=== PATIENT | female | born 1980 | race Caucasian/White ===

== ENCOUNTER 2017-10-27 18:22 | Emergency (ER) | payer MEDICARE, OTHER ==
[2017-10-27 18:50] VITALS: BP 139/86; PULSE 89; RESP 20; TEMP 98.7
[2017-10-27] MEDS ORDERED: predniSONE 50 MG TAB PO STA (20:52)
[2017-10-27] MEDS ORDERED: HYDROmorphone 4 MG/ML 1 ML SYRINGE IM STA (20:52)
[2017-10-27] MEDS ORDERED: ORPHENADRINE 30 MG/ML 2 ML VIAL IM STA (20:52)
--- NOTE | 2017-10-27 21:10 | ED ---
Back Pain HPI - General Chief Complaint: Back Pain/Injury Stated Complaint: back pain, 3 disc herniation Time Seen by Provider: 10/27/17 20:52 Source: patient, RN notes reviewed Limitations: no limitations - History of Present Illness Initial Comments: This is a 36-year-old female who presents to the emergency department with chief complaint of acute on chronic back pain. Patient states that she is seen by doctors at [facility] for chronic back pain. She states she she has a history of 3 herniated disks with spinal fluid leaking into her spinal column. She states that she is supposed to have back surgery but is not keen on doing so. Patient states that she must return to work on Monday and that her current medication is "not cutting it for me." Patient denies any new injuries or trauma. She denies saddle paresthesias or loss of bladder or bowel function. She denies any numbness or tingling or radiation of pain down the legs. She denies fevers or chills, abdominal pain, nausea or vomiting. - Related Data Previous Rx's Medication Instructions Recorded predniSONE 20 mg PO BID #8 tab 10/27/17 Allergies Allergy/AdvReac Type Severity Reaction Status Date / Time No Known Allergies Allergy Verified 10/27/17 18:50 Review of Systems ROS Statement: Those systems with pertinent positive or pertinent negative responses have been documented in the HPI. ROS Other: All systems not noted in ROS Statement are negative. Past Medical History Additional Past Medical History / Comment(s): Back injury History of Any Multi-Drug Resistant Organisms: None Reported Past Surgical History: No Surgical Hx Reported Past Psychological History: Anxiety Smoking Status: Former smoker Past Alcohol Use History: None Reported Past Drug Use History: Marijuana General Exam - General Exam Comments Initial Comments: General: Awake and alert, well-developed; in no apparent distress. Sitting on chair while leaning forward. HEENT: Head atraumatic, normocephalic. Pupils are equal, round and reactive to light. Extraocular movements intact. Oropharynx moist without erythema or exudate. Neck: Supple. Normal ROM. No tenderness. Cardiovascular: Regular rate and rhythm. No murmurs, rubs or gallops. Chest symmetrical. Respiratory: Lungs clear to auscultation bilaterally. No wheezes, rales or rhonchi. Normal respiratory effort with no use of accessory muscles. Musculoskeletal: Normal ROM and no tenderness on palpation of the vertebra, SI joints or bilateral paraspinal muscles. Sensation is intact. Pedal pulses are 2+ equal and palpable bilaterally. Ambulating normally. Skin: [place], warm and dry without rashes or lesions. Neurological: Alert and oriented x3. CN II-XII grossly intact. Speech is fluent and answers are appropriate. No focal neuro deficits. Psychiatric: Normal mood and affect. No overt signs of depression or anxiety noted. Limitations: no limitations Course Vital Signs 10/27/17 18:47 Temperature 98.7 F Pulse Rate 89 Respiratory 20 Rate Blood Pressure 139/86 O2 Sat by Pulse 99 Oximetry Medical Decision Making - Medical Decision Making This is a 36-year-old female presents to the emergency department with chief complaint of acute on chronic back pain. She denies any new injuries or trauma. She denies saddle paresthesias or loss of bladder or bowel function. She denies numbness or tingling or radiation of pain down the legs. Patient denies any IV drug use. She is seen by doctors at [facility] for her chronic back pain and disc herniations. Patient given pain medication and muscle relaxer while in the emergency department. She'll be discharged home with a prescription for steroids. Recommended follow-up with her primary care provider. Patient is in agreement with plan and voices understanding. All questions were answered. Disposition Clinical Impression: Acute exacerbation of chronic low back pain Disposition: HOME SELF-CARE Condition: Good Instructions: Chronic Back Pain (ED) Additional Instructions: Please take medications as prescribed. Muscle relaxer given to you in the emergency room was Norflex. Please follow up with primary care provider within 1 -2 days. Return to emergency department if symptoms should worsen or any concerns arise. Prescriptions: predniSONE 20 mg PO BID #8 tab Referrals: Nonstaff,Physician [Primary Care Provider] - 1-2 days Time of Disposition: 21:27
== END 2017-10-27 21:45 | disposition home or self-care (01) ==
LOC: EC 18:22
DX: G89.29 Other chronic pain (principal); M54.5 Low back pain; Z87.891 Personal history of nicotine dependence
CPT/HCPCS: 99283; 96372 ×2; J2360; J7512; J1170